=== PATIENT | female | born 1940 | race Caucasian/White ===

== ENCOUNTER 2021-02-20 09:43 | Outpatient (REF) | payer MEDICARE, BC, SELFPAY ==
[2021-02-20 13:01] LABS: HCT 35.7 % (36.0-46.0); HGB 11.4 g/dL (11.2-15.7); MCH 28.2 pg (27.0-33.0); MCHC 31.9 % (32.0-36.0); MCV 88.4 fL (80-95); MPV 10.6 fL (8.0-11.0); Platelet Count 292 10^3/uL (130-400); RBC 4.04 10^6/uL (3.93-5.22); RDW 12.7 % (11.7-14.6); RDW-SD 41.4 fL; WBC 4.77 10^3/uL (4.4-10.8)
[2021-02-20 15:29] LABS: Calcium 8.9 mg/dL (8.5-10.1); Glucose 95 mg/dL (74-106)
[2021-02-20 15:30] LABS: BUN 15 mg/dL (7-18); CREATININE 0.7 mg/dL (0.55-1.02); Calculated LDL 107 mg/dL (<100); Cholesterol 197 mg/dL (<200); HDL Cholesterol 80 mg/dL (40-60); Total Protein 6.9 g/dL (6.4-8.2); Triglyceride 53 mg/dL (<150)
[2021-02-20 15:31] LABS: ALT 20 U/L (14-59); AST 14 U/L (15-37); Albumin 3.7 g/dL (3.4-5.0); Alkaline Phosphatase 110 U/L (46-116); Anion Gap 9.1 mmol/L (3-11); Bilirubin, Total 0.4 mg/dL (0.2-1.0); CO2 26.9 mmol/L (21.0-32.0); Chloride 107 mmol/L (98-107); Potassium 4.3 mmol/L (3.5-5.1); Sodium 143 mmol/L (136-145)
== END 2021-02-20 09:44 | disposition home or self-care (01) ==
LOC: NCHCN 09:43
PROVIDERS: Visit Provider Family Medicine
DX: E03.9 Hypothyroidism, unspecified (principal); E66.9 Obesity, unspecified; L57.8 Other skin changes due to chronic exposure to nonionizing radiation
CPT/HCPCS: 80053; 80061; 85027

== ENCOUNTER → 2021-10-25 01:01 | Outpatient (CLI) | payer MEDICARE, BC, SELFPAY ==
--- NOTE | 2021-10-25 | DI.RAD_ITS ---
Exam(s) XR KNEE LT 3V AP,LAT,BRITT EXAM: XR KNEE LT 3V AP,LAT,BRITT CLINICAL HISTORY: BILAT KNEE PAIN, M25.569. TECHNIQUE: 2D digital imaging was performed of the left knee. Images were obtained. Merchant,AP, lateral and PA tunnel views were obtained. COMPARISON: CR XR KNEE RT 3V AP,LAT,BRITT from 10/25/2021 FINDINGS: BONES: No acute fracture is present. No bony destructive lesion is seen. JOINTS: Moderate narrowing and periarticular spurring of the lateral femoral tibial joint and patello femoral joint. Small joint effusion. SOFT TISSUE: Normal. IMPRESSION: Moderate degenerative changes. DATA REPOSITORY: RADIATION DOSE DELIVERED:
--- NOTE | 2021-10-25 | DI.RAD_ITS ---
Exam(s) XR KNEE RT 3V AP,LAT,BRITT EXAM: XR KNEE RT 3V AP,LAT,BRITT CLINICAL HISTORY: BILAT KNEE PAIN, M25.569. TECHNIQUE: 2D digital imaging was performed of the right knee. Three views obtained. AP, lateral an d PA tunnel views were obtained. COMPARISON: No exams were available for comparison FINDINGS: BONES: No acute fracture is present. No bony destructive lesion is seen. JOINTS: There is narrowing of the lateral femoral tibial and patellofemoral joints. Periarticular sp urring is seen involving all 3 joint compartments. No joint effusion is seen. SOFT TISSUE: Normal. IMPRESSION: Moderate degenerative changes of the knee. DATA REPOSITORY: RADIATION DOSE DELIVERED:
--- OUTSIDE RECORDS SUMMARY | 2021-10-25 01:02 | XMS_ITS | Encounter Summary ---
:1940 Author Organization [facility] [place] [address] Care Team Providers Name Role Phone Karen Holder MD Primary Care Provider Reason for Visit Reason Comments Establish Care Consultation (Routine) - Authorized Specialty Diagnoses / Procedures Referred By Contact Refer red To Contact Hematology and Diagnoses Carcinoma of left female breast, unspecified estrogen receptor status, unspecified site of breast Karen Holder MD [facility] Hem Onc 3k Oncology [address] [place] [address] [place] [address] Phone: Fax: Referral ID Status Reason Start Date Expiration Visits Visits Date Requested Authorized [id number] Authorized Consult, 06/11/2021 06/11/2022 6 6 Test & Treat Encounter Details Date Type Department Care Team Description 08/15/2021 Office Visit General Surgery at [facility] for follow- up surveillance of breast cancer; [facility] Savannah Leon APRN Malignant neoplasm of left breast in fem olena, estrogen receptor positive, unspecified site of breast; [facility] Cyndi ast cancer screening by mammogram [address] [place] [facility] [phone] [place], [place] [id number] Social History Tobacco Use Types Packs/Day Years Used Date Former Smoker Quit: 1964 Smokeless Tobacco: Never Used Alcohol Habits Answer Date Recorded How often do you have a drink containing alcohol? Not asked How many drinks containing alcohol do you have on a typical Not asked day when you are drinking? How often do you have six or more drinks on one occasion? No t asked Comment: rarely 01/09/2021 Sex Assigned at Date Recorded Not on file documented as of this encounter Progress Notes Alvina, Savannah Leon, RENAL DIALYSIS TECHNICIAN - 08/15/2021 9:00 AM EDT Images from the original note were not included. Patient ID: Savannah Poe is a 80 y.o. female who is seen at the request of Karen Holder MD for transfer of care for a history of left breast cancer. I have reviewed her medical records in detail. 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 She is status post bilateral partial mastectomies and left sentinel node excision at [facility] in December 1996. At today's visit, Savannah has no breast concerns and denies any new lumps or bumps in her breasts or axilla. She performs occasional self-breast exams. No nipple discharge or pain in either breast. She denies any headaches or significant weight changes. No new chest pain or difficulty breathing. No new bony pain or tenderness. She denies significant changes to her health in the past year. Breast cancer history: Savannah underwent bilateral partial mastectomies and left ALND at [facility] in 12/1996. Pathology revealed invasive ductal carcinoma, ER/MO positive, 1.5 cm. One of [address] were positive. She was treated with adjuvant chemotherapy (most likely CMF), radiation (completed 10/24/1997) and endocrine therapy with tamoxifen x 5 years followed by letrozole for 2 years. Genetic testing was done in 03/2013 and was negative for BRCA 1/2 mutations. She developed lymphedema in the left arm in 2013. Her symptoms are stable at this time. No need for compression garments or regular MLD. BREAST CANCER NOTES Local Surgery Right partial mastectomy Axillary Management ALND (1 of [address] involved) Date of Last Surgical Procedure 12/1996 at [facility] Histology IDC left; LCIS right Size of Primary Malignancy 15 mm ER Positive MO Positive HER-2 Negative Chemotherapy Adjuvant CMF Radiation Therapy Completed 10/24/1997 Adjuvant Endocrine Therapy Tamoxifen x 5 yrs => letrozole x 2 yrs Genetic Testing 03/2013 - BRCA 1/2 negative Surveillance Annual mammogram and CBE Breast Cancer Risk Factors: History Age at delivery of first child 33 yo Breast fed Yes Menarche age 13 yo LMP / Menopause After chemo Hormonal contraceptive use Yes Hormone replacement therapy No Family history of breast cancer Paternal half sister Family history of ovarian cancer Mother Known genetic mutation 03/2013 - BRCA 1/2 negative Ashkenazi Gnosticism heritage No Family History Problem (# of Occurrences) Relation (Name,Age of Onset) Breast Cancer (1) Sister (half) Leukemia (1) Maternal Aunt Melanoma (1) Maternal Aunt Ovarian Cancer (1) Mother Social Hx: Savannah relocated to the area from [place] with the pandemic. 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 She has a distant history of smoking in college; ETOH - 1-2/yr. Past Medical Hx: thyroid cancer, osteoporosis, SCC, aortic regurgitation Physical Exam: General appearance: Alert, well-developed, well-nourished; in no acute distress. Skin: Warm and dry. Head: Normocephalic, atraumatic. Neck: Soft and supple without cervical adenopathy. Cardiovascular: Normal rate, regular rhythm and normal heart sounds. No murmur heard. Pulmonary: Effort normal and breath sounds normal. No signs of respiratory distress, cough, or wheezing. Breasts: The breasts are examined in the upright and supine position. The left breast has a well-healed scar in the lateral breast and axilla. The scar is soft and nontender, without mass. No venous prominence, skin thickening, or nipple discharge. The right breast is normal appearing. No suspicious masses, tenderness, dimpling, erythema, or other skin changes in either breast. No palpable axillary lymph nodes bilaterally. The nipples are everted. I feel no obvious discrete or dominant masses in either breast. Musculoskeletal: Arms with full ROM without any evidence of lymphedema. Fully weight-bearing. Neurological: Alert and oriented x 4. Mood is euthymic and appropriate to the situation. Results: Imaging to be performed (bilateral screening mammogram) at [facility] today. I will notify her ofresults via myD-H when available. Assessment: Clinical breast exam without notable masses, skin changes, dimpling, or nipple discharge. Plan: 1. Encounter for follow-up surveillance of breast cancer 2. Malignant neoplasm of left breast in female, estrogen receptor positive, unspecified site of breast 3. Breast cancer screening by mammogram - Mammo Screening Cad and Morgan Bilateral; today I have discussed my assessment and recommendations with Savannah to include occasional self-breast exams. Provided today's mammogram is negative, we will go to PRN imaging and breast exams. Savannah knows she may contact me if she develops any new breast changes or concerns in the future. She agrees to thisplan. Routine recommendations discussed with the patient including importance of regular moderate intensity exercise, nutrition, decreasing cardiovascular risk, and optimizing weight. Nonpharmacologic measures to help decrease your risk of developing breast cancer include the following: ?? Get at least 30 minutes of moderate intensity physical activity above normal activity on most days of the week to reduce the risk of chronic disease in adulthood. Walking is a good choice. You also may want to do other activities, such as running, swimming, cycling, playing tennis, or other team sports. ?? Do strength training exercises at least twice a week to maintain muscle and bone health. ?? Drink alcohol in moderation, if at all. That means no more than 1 drink a day for women or 2 per day for men. ?? Make healthy eating choices: fruits and vegetables, lean protein, and healthy fats. Minimize processed foods, simple carbohydrates, sugars, and artificial sweeteners. ?? Maintain or achieve a healthy weight. Normal BMI < 25 for individuals under 65 years old; 22-30 for > 65 years old. ?? Manage stress levels. ?? Be cautious about exposure risk, both what you put in and on your body (ie: artificial fragrances, artificial dyes, as well as certain ingredients in makeup, hair and body care, antiperspirant, sunscreen, insect repellant, laundry detergent, fabric softener, dryer sheets, etc.). Resources to help you make informed choices for personal care products are available at EWG (Environmental Working Group) at https://www.ewg.org and free apps for your cell phone from [employer] ([employer]) and [employer] ([employer]). All questions were answered to the patient's satisfaction and they state understanding and agreementwith today's treatment plan. They are encouraged to follow up if they develop new or concerning symptoms. Total time spent on the date of the encounter: 50 minutes (Includes time spent reviewing prior notes and tests, obtaining a history, performing an exam, counseling and education, coordination of care, ordering medications/tests, placing referrals, interpreting results, and documenting in the chart). Savannah Tinsley APRN Surgical Oncology P [phone] F [phone] [facility] documented in this encounter Plan of Treatment Not on filedocumented as of this encounter Results Mammo Screening Cad and Morgan Bilateral (08/15/2021 12:15 PM EDT) Anatomical Region Laterality Modality Breast Bilateral Mammography Specimen (Source) Anatomical Location Collection Method / Collectio n Time Received Time / Laterality Volume Narrative 08/16/2021 11:52 AM EDT EXAMINATION: MAMMO SCREENING CAD AND MORGAN BILATERAL REASON FOR EXAM: Screening. History of l eft breast cancer. TECHNIQUE: CC and MLO views were obtaine d of both breasts. Computer aided detection was used. 3D tomosynthesis sulema ges were obtained in addition to 2D images. COMPARISON: The study is compared with p lyndhurstr images. FINDINGS: Breast density: The breasts are heteroge neously dense, which may obscure small masses There are no suspicious microcalcificati ons, masses, or areas of distortion. There are post treatment changes in the left breast. CONCLUSION: No mammographic evidence of malignancy. RECOMMENDATION: Routine annual screening . BI-RADS CATEGORY 2: BENIGN FINDINGS * ??Regular screening mammograms startin g between age 40 and 50 reduces the risk of from breast cancer. * ??All screening tests have both risks and benefits. These risks and benefits should be assessed for each individual p atient through discussion with their provider to determine their preferred east cancer screening schedule. * ??Women should report any breast contreras es to a health care provider right away. * ??Some women, because of their family history, a genetic tendency, or other factors, should be screened with annual breast MRI as well as with mammograms. (The number of women who fall into this category is very small). Patients and health care providers should discuss the history of each patient to decide if earlier screening and/or breast MRI are appropriate. * ??Screening should continue as long as a woman is in good health and is expected to live 10 years or longer. * ??Screening mammography may not detect 10-15% of breast cancers. Thank you for letting us participate in the care of this patient. ??If you are a health care provider and have any questi ons regarding this report, please contact the number below. ??For patients who have questions please contact the health ocular care aide that requested your imaging first. ? Savannah Tinsley RENAL DIALYSIS TECHNICIAN IMG MAMMO ORDERABLES documented in this encounter Visit Diagnoses Diagnosis Encounter for follow-up surveillance of breast cancer Unspecified follow-up examination Malignant neoplasm of left breast in fem olena, estrogen receptor positive, unspecified site of breast Breast cancer screening by mammogram Malignant neoplasm of left breast in fem olena, estrogen receptor positive, unspecified site of breast Breast cancer screening by mammogram documented in this encounter Care Teams Service Officer Relationship Specialty Start Date End Date Karen Holder MD PCP - General Family Medicine 11/26/20 [address] [place] [address] documented as of this encounter
--- OUTSIDE RECORDS SUMMARY | 2021-10-25 01:02 | XMS_ITS | Encounter Summary ---
:1940 Author Organization [place] [address] Care Team Providers Name Role Phone Karen Holder MD Primary Care Provider Encounter Details Date Type Department Care Team Description 07/18/2021 Telephone Endocrinology at [facility] Misti Mendez MD [facility] [place] [address] ENDOCRINOLOGY DEPT [phone] [place] [address] (Wo rk) Social History Tobacco Use Types Packs/Day Years [...] on file documented as of this encounter Miscellaneous Notes Telephone Encounter - Misti Fernandes MD - 07/18/2021 1:53 PM EDT I spoke with Savannah Poe regarding her labs: Latest Reference Range & Units 06/26/21 14:26 Creatinine 0.70 - 1.20 mg/dL 0.70 Estimated GFR >=60 mL/min/1.73 m?? 82 [1] Thyroglobulin <=54.9 ng/mL 0.2 Thyroglob Ab 0.0 - 40.0 IU/mL <20.0 25-OH Vit D Total 21 - 100 ng/mL 25 25-OH Vit D Interp Insufficient TSH 0.27 - 4.20 mcIU/mL 0.52 [2] Tg remains low. TSH low normal. We discussed the option of continuing her current dose of LT4 175 mcg daily vs reducing her dose to 150 mcg daily to relax TSH suppression, as this may also benefit her bone health. She has elected to continue her current dose as she fears her fatigue may worsen. Recheck TSH in 1 year. Vit D low - advised to start 2000 units daily. Recheck DEXA in 1 year. documented in this encounter Plan of Treatment Scheduled Orders Name Type Priority Associated Diagnoses Order S chedule DXA Central Spine, Imaging Routine Osteoporosis, unspecif ied Expected: 07/18/2022 Hip, and/or Whole osteoporosis type, (Hardik roximate), Body (Generic) unspecified pathological E xpires: 01/17/2023 fracture presence TSH [facility] Routine Postoperative Expected: 10/2022 hypothyroidism (Approximate) , Expires: 2022 documented as of this encounter Visit Diagnoses Diagnosis Osteoporosis, unspecified osteoporosis t ype, unspecified pathological fracture presence Postoperative hypothyroidism Postsurgical hypothyroidism documented in this encounter Care Teams Cell Repairer Relationship Specialty Start Date End Date Karen Holder MD PCP - General Family Medicine 11/26/20 [address] [place] [address] documented as of this encounter
--- OUTSIDE RECORDS SUMMARY | 2021-10-25 01:02 | XMS_ITS | Encounter Summary ---
:1940 Author Organization [facility] [place] [address] Care Team Providers Name Role Phone Karen Holder MD Primary Care Provider Encounter Details Date Type Department Care Team Description 08/15/2021 Hospital Encounter Mammography/DXA at [facility] neoplasm of left breast in female, estrogen receptor positive, unspecified site of breast; [facility] Savannah Leon APRN Breast cancer screening by mammogram [facility] [address] [place], [place] GENER[facility] [address] [place], [place] [phone] [facility] Social History Tobacco Use Types Packs/Day Years [...] on file documented as of this encounter Medications at Time of Discharge Medication Sig Dispensed Refills Start Date End Date Synthroid 175 mcg Tablet TAKE 1 TABLET BY MOUTH 0 09/14/2020 EVERY DAY acetaminophen-codeine Take 1 tablet by mouth 4 tablet 0 (Tylenol-Codeine #3) every 8 hours as 300-30 mg Tablet needed for Pain. No driving, no alcohol documented as of this encounter Plan of Treatment Not on filedocumented as of this encounter Procedures Procedure Name Priority Date/Time Associated Diagnosis Comme nts MAMMO SCREENING CAD Routine 08/15/2021 12:15 PM Malignant neop lasm Results for this AND MORGAN BILATERAL EDT of left breast in proc betty are in female, estrogen the results receptor positive, section. unspecified site of breast Breast cancer screening by mammogram documented in this encounter Results Mammo Screening Cad and [...] COMPARISON: The study is compared with p rior images. FINDINGS: Breast density: The breasts are [...] with their provider to determine their preferred [facility] cancer screening schedule. * ??Women should report [...] who have questions please contact the health outdoor emergency care technician that requested your imaging first. ? Savannah Tinsley ABALONE DIVER IMG MAMMO ORDERABLES documented in this encounter Visit Diagnoses Diagnosis Malignant neoplasm of left breast in fem olen[place], estrogen receptor positive, unspecified site of breast Breast cancer screening by mammogram documented in this encounter Care Teams Elevator Repairer Relationship Specialty Start Date End Date Karen Holder MD PCP - General Family Medicine 11/26/20 [address] [place] [address] documented as of this encounter
--- OUTSIDE RECORDS SUMMARY | 2021-10-25 01:02 | XMS_ITS | Clinical Summary ---
:1940 Author Organization [place] [address] Care Team Providers Name Role Phone aKren Holder MD Primary Care Provider Allergies No known active allergies Medications Medication Sig Dispensed Refills Start Date End Date Status Synthroid 175 mcg TAKE 1 TABLET BY 0 09/14/2020 Active Tablet MOUTH EVERY DAY acetaminophen-codeine Take 1 tablet by 4 tablet 0 12/06/2020 Active (Tylenol-Codeine #3) mouth every 8 300-30 mg Tablet hours as needed for Pain. No driving, no alcohol Additional Information Patient not taking. Reported on 06/26/2021 Active Problems Problem Noted Date Arthritis of carpometacarpal (CMC) joint of left thumb 01/09/2021 Mild aortic regurgitation 11/18/2017 History of squamous cell carcinoma of skin 07/24/2009 Malignant neoplasm of left breast in female, estrogen receptor positive 09/16/2005 Overview: Formatting of this note might be differe nt from the original. ICD10 replacement of problem list Hypothyroidism Thyroid cancer Encounters Date Type Specialty Care Team Description 08/15/2021 Hospital Encounter Radiology Alvina, Maligndesire nt neoplasm of left breast in female, estrogen receptor positive, unspecified site of breast; Savannah Leon APRN Breast cancer screening by mammogram 08/15/2021 Office Visit General Surgery Alvina, Encounter for follow-up surveillance of breast cancer; Savannah Leon APRN Malignant neop lasm of left breast in female, estrogen receptor positive, unspecified site of breast; Breast cancer s creening by mammogram from Last 3 Months Family History Medical History Relation Comments Melanoma Maternal Aunt 1 Leukemia Maternal Aunt 2 Ovarian Cancer Mother Breast Cancer Sister Relation Status Comments Maternal Aunt 1 Maternal Aunt 2 Mother Sister Social History Tobacco Use Types Packs/Day Years [...] Assigned at Date Recorded Not on file Last Filed Vital Signs Vital Sign Reading Time Taken Comments Blood Pressure 129/61 06/26/2021 1:19 PM EDT Pulse 76 06/26/2021 1:19 PM EDT Temperature 36.9 ??C (98.4 ??F) 06/26/2021 1:19 PM EDT Respiratory Rate 18 12/06/2020 7:41 PM EDT Oxygen Saturation 99% 06/26/2021 1:19 PM EDT Inhaled Oxygen Concentration - - Weight 94.3 kg (207 lb 12.8 oz) 06/26/2021 1:19 PM EDT Height 170.2 cm (5' 7) 06/26/2021 1:19 PM EDT Body Mass Index 32.55 06/26/2021 1:19 PM EDT Plan of Treatment Health Maintenance Due Date Last Done Comments Covid-19 Vaccine (#1) 1945 Tdap adult 09/12/1959 Tetanus vaccine 09/12/1959 Zoster vaccine (1 of 2) 1990 Advance Directive 09/12/1995 Bone Density Scan 2005 Pneumoccocal Vaccine: 65+ (1 - PCV) 2005 Influenza (Flu) vaccine (1 of 1 - Influenza standard 12/12/2021 series) Procedures Procedure Name Priority Date/Time Associated Diagnosis Comme nts MAMMO SCREENING CAD Routine 08/15/2021 12:15 PM Malignant neop lasm Results for this AND MORGAN BILATERAL EDT of left breast in proc edure are in female, estrogen the results receptor positive, section. unspecified site of breast Breast cancer screening by mammogram from Last 3 Months Results Mammo Screening Cad and Morgan Bilateral [...] with their provider to determine their preferred [facility] cancer screening schedule. * ??Women should report [...] who have questions please contact the health interior plant caretaker that requested your imaging first. ? Savannah Leon [place] DOT COMPLIANCE SPECIALIST IMG MAMMO ORDERABLES from Last 3 Months Insurance Payer Benefit Plan / Subscriber ID Effective Phone Address T ype Group Dates [employer] [id number] 2021-Prese [address] [place] [address] [place] [address] MEDICARE MEDICARE PART [id number] 2020-Prese [phone] [place] [address] Care Teams Network Architect Manager Relationship Specialty Start Date End Date Karen Holder MD PCP - General Family Medicine 11/26/20 [address] [place], [place] [id number]
--- OUTSIDE RECORDS SUMMARY | 2021-10-25 01:03 | XMS_ITS | Encounter Summary ---
:1940 Author Organization [facility] [place] [address] Care Team Providers Name Role Phone Karen Holder MD Primary Care Provider Reason for Referral Consultation (Routine) - Authorized Specialty Diagnoses / Procedures Referred By Contact Refer red To Contact Hematology and Diagnoses Carcinoma of left female breast, unspecified estrogen receptor status, unspecified site of breast Karen Holder MD [facility] Hem Onc 3k Oncology [address] [place] [address] [place] [address] Phone: Fax: Referral ID Status Reason Start Date Expiration Visits Visits Date Requested Authorized [id number] Authorized Consult, 06/11/2021 06/11/2022 6 6 Test & Treat Encounter Details Date Type Department Care Team Description 06/11/2021 Transcribe Orders Administration Karen Holder, Carcinoma of left [facility] female breast, Drive [address] unspecified estrogen [place], [place] receptor status , [phone] unspecified site of [phone] breast (Work) Social History Tobacco Use Types Packs/Day Years Used Date Never Smoker Alcohol Habits Answer Date Recorded How often [...] on file documented as of this encounter Plan of Treatment Scheduled Referrals Name Type Priority Associated Order Schedule Diagnoses Referral to Outpatient Referral Routine Carcinoma of left Ord ered: Comprehensive Breast female breast, 06/11 Program unspecified estrogen receptor status, unspecified site of breast documented as of this encounter Visit Diagnoses Diagnosis Carcinoma of left female breast, unspeci fied estrogen receptor status, unspecified site of breast documented in this encounter Care Teams Manager Sharepoint Relationship Specialty Start Date End Date Karen Holder MD PCP - General Family Medicine 11/26/20 [address] [place] [address] documented as of this encounter
--- OUTSIDE RECORDS SUMMARY | 2021-10-25 01:03 | XMS_ITS | Encounter Summary ---
:1940 Author Organization [facility] [place] [address] Care Team Providers Name Role Phone Unavailable Primary Care Provider Unavailable Encounter Details Date Type Department Care Team Description 05/31/2013 Ancillary Procedure Radiology Library at Karen Holder MD [facility] [address] [place] [address] [facility] [phone] [place] [address] (Work) [phone] Social History Tobacco Use Types Packs/Day Years Used Date Never Assessed Sex Assigned at Date Recorded Not on file documented as of this encounter Plan of Treatment Not on filedocumented as of this encounter Procedures Procedure Name Priority Date/Time Associated Diagnosis Comme nts FILM LIBRARY Routine 05/31/2013 12:00 AM Results for this STORAGE ONLY MAMMO EST procedure are in the results section. documented in this encounter Results Film Library- Storage Only Mammo (05/31/2013 12:00 AM EST) Specimen (Source) Anatomical Location Collection Method / Collectio n Time Received Time / Laterality Volume Narrative SHELLY - 06/25/2021 4:25 PM EDT This exam is auto-finalizing. It's purpo se is for storage only. Karen Holder MD IMG FILM LIBRARY ORDERABLES Performing Organization Address City/State/ZIP Code Phon e Number [place], [place] documented in this encounter Visit Diagnoses Not on filedocumented in this encounter
--- OUTSIDE RECORDS SUMMARY | 2021-10-25 01:03 | XMS_ITS | Encounter Summary ---
:1940 [place] [address] Care Team Providers Name Role Phone Karen Holder MD Primary Care Provider Reason for Visit Reason Comments Oral Swelling left jaw Jaw Pain left Encounter Details Date Type Department Care Team Description 12/06/2020 Emergency Emergency Department [facility] [place] [address] Social History Tobacco Use Types Packs/Day Years Used Date Never Assessed Sex Assigned at Date Recorded Not on file documented as of this encounter Last Filed Vital Signs Vital Sign Reading Time Taken Comments Blood Pressure 128/70 12/06/2020 7:41 PM EDT Pulse 78 12/06/2020 7:41 PM EDT Temperature 36.4 ??C (97.6 ??F) 12/06/2020 3:34 PM EDT Respiratory Rate 18 12/06/2020 7:41 PM EDT Oxygen Saturation 98% 12/06/2020 7:41 PM EDT Inhaled Oxygen Concentration - - Weight 99.8 kg (220 lb) 12/06/2020 3:34 PM EDT Height - - Body Mass Index - - documented in this encounter Discharge Instructions Discharge InstructionsTristin Edwards APRN - 12/06/2020 7:35 PM EDT Images from the original note were not included. You were seen today in the emergency department and evaluated for dental pain and facial swelling. You are felt that you have a dental infection and are started on antibiotics and medications to help with your pain. You were able to tolerate fluids in the emergency department. We recommend that you push fluids and while it is still painful to chew follow a full liquid diet, things such as boost or Ensure or smoothies can be helpful. Sometimes lukewarm beverages can cause less pain. Instructions and plan: See the instructions below for general care guidelines regarding your infected tooth. See your primary care provider as needed for reevaluation and follow up. Return if you have new or worsening symptoms or any of the symptoms we discussed including but not limited to: New or worsening symptoms of infection including increased pain, swelling, warmth or redness. Red streaks bleeding from the area, pus draining from the area. Difficulty breathing or swallowing. Fever, chills. Abscessed Tooth: Care Instructions Your Care Instructions An abscessed tooth is a tooth that has a pocket of pus in the tissues around it. Pus forms when the body tries to fight an infection caused by bacteria. If the pus cannot drain, it forms an abscess. Anabscessed tooth can cause red, swollen gums and throbbing pain, especially when you chew. You may have a bad taste in your mouth and a fever, and your jaw may swell. Damage to the tooth, untreated tooth decay, or gum disease can cause an abscessed tooth. An abscessed tooth needs to be treated by a dental professional right away. If it is not treated, the infection could spread to other parts of your body. Your dentist will give you antibiotics to stop the infection. He or she may make a hole in the tooth or cut open (marine) the abscess inside your mouth so that the infection can drain, which should relieve your pain. You may need to have a root canaltreatment, which tries to save your tooth by taking out the infected pulp and replacing it with a healing medicine and/or a filling. If these treatments do not work, your tooth may have to be removed. Follow-up care is a armstrong part of your treatment and safety. Be sure to make and go to all appointments, and call your doctor if you are having problems. It's also a good idea to know your test results and keep a list of the medicines you take. How can you care for yourself at home? You have been prescribed antibiotics, take them as directed. Do not stop taking them just because you feel better. You need to take the full course of antibiotics. To reduce pain and facial swelling, put an ice or cold pack on the outside of your cheek for 10 to 20 minutes at a time. Put a thin cloth between the ice and your skin. You can take an [id number] nonsteroidal anti-inflammatory such as ibuprofen (Motrin) 600 mg bymouth every 8 hours as needed or naproxen (Aleve) 220 mg by mouth every 12 hours as needed. Be sure to take the ibuprofen or naproxen with food or a small meal. You can also take Tylenol 1000 mg by mouth every 8 hours as needed (do not take more than 3000 mg in a 24-hour period). As we discussed you can substitute one of the extra strength Tylenol pills for one of the Tylenol with codeine pills. Avoid very hot, cold, or sweet foods and drinks if they increase your pain. Rinse your mouth with warm salt water every 2 hours to help relieve pain and swelling. Mix 1 teaspoon of salt in 8 ounces of water, it should taste like the ocean. Gargle this for 30-45 seconds and then spit. Do not smoke or use spit tobacco. Tobacco use can make gum problems worse, decreases your ability tofight infection in your gums, and delays healing. If you need help quitting, talk to your doctor about stop-smoking programs and medicines. These can increase your chances of quitting for good. Make an appointment to see a dentist as soon as possible. To prevent tooth abscess [place] and floss every day, and have regular dental checkups. Eat a healthy diet, and avoid sugary foods and drinks. Do not smoke, use e-cigarettes with nicotine, or use spit tobacco. Tobacco and nicotine slow your ability to heal. Tobacco also increases your risk for gum disease and cancer of the mouth and throat. If you need help quitting, talk to your doctor about stop-smoking programs and medicines. These can increase your chances of quitting for good. When should you call for help? Call 911 anytime you think you may need emergency care. For example, call if: You have trouble breathing. Call your doctor now or seek immediate medical care if: You have new or worse symptoms of infection, such as: Increased pain, swelling, warmth, or redness. Red streaks leading from the area. Pus draining from the area. A fever. Watch closely for changes in your health, and be sure to contact your doctor if: You do not get better as expected. Where can you learn more? Visit our health information library at [email or web address]. You can also view health information on [employer], your personal patient account. Log in or sign up today. Enter L466 in the search box to learn more about Abscessed Tooth: Care Instructions. Current as of: August 22, 2016 Content Version: 11.7 ?? 1147-3115 [employer]. Care instructions adapted under license by [facility]. If you have questions about a medical condition or this instruction, always ask your healthcare professional. [employer] disclaims any warranty or liability for your use of this information. documented in this encounter Medications at Time of Discharge Medication Sig Dispensed Refills Start Date End Date Synthroid 175 mcg Tablet TAKE 1 TABLET BY 0 09/14 MOUTH EVERY DAY acetaminophen-codeine Take 1 tablet by 4 tablet 0 12/07/19 21 (Tylenol-Codeine #3) mouth every 8 hours 300-30 mg Tablet as needed for Pain. No driving, no alcohol penicillin v potassium Take 1 tablet by 40 tablet 0 2 021 12/16/2020 (VEETID) 500 mg Tablet mouth 4 times daily for 10 days. documented as of this encounter ED Notes Tristin Edwards APRN - 12/06/2020 7:42 PM EDT Images from the original note were not included. Patient Name: Savannah Poe Patient Age: 80 y.o. Patient : 1940 Encounter Date: 12/06/2020 SUBJECTIVE CC: Oral Swelling (left jaw) and Jaw Pain (left) HPI: Savannah Poe is a 80 y.o. female who presents for evaluation of dental pain, facial swelling. Past medical history of thyroid cancer status post resection now on thyroid replacement therapy. Sheis otherwise healthy without any other significant past medical history. She reports for the past 2 days she has had dental pain in her left lower jaw as well as associated swelling. She did see your dentist a couple months ago and they did identify an issue with that tooth but plan to hold off for the time being, she was able to get an appointment with her clerical administrative assistant here but not to this upcoming Thursday. She has found it painful to eat and drink particularly because of the hot/cold temperature of the beverage. She has found chewing painful. She is here with her daughter and her daughter is concerned that she is not well-hydrated. Patient denies any fever or chills, she took 600 of ibuprofen about 2 hours prior to arrival, she has not taken any Tylenol today. She has not had any difficulty managing her secretions. The history is provided by the patient and EMR. ROS: ROS as above with pertinent positives and negatives, otherwise 10 systems are reviewed and negative. PMH, PSH, SH, medications and allergies reviewed & updated in chart as appropriate. OBJECTIVE VS: BP 128/70 Pulse 78 Temp 36.4 ??C (97.6 ??F) (Temporal) Resp 18 Wt 99.8 kg (220 lb) SpO2 98% PHYSICAL EXAM: Physical Exam Constitutional: General: She is not in acute distress. Appearance: Normal appearance. HENT: Head: Jaw: Tenderness and swelling present. No trismus. Comments: Mild swelling of the left lower jaw. Mouth/Throat: Mouth: Mucous membranes are moist. Dentition: Dental tenderness present. Pharynx: Oropharynx is clear. Comments: Left lower most posterior molar with tenderness, no palpable abscess or fluctuance, no drainage. Neck: Comments: Left submandibular swelling, floor of mouth is soft, phonation is normal, trachea is midline. No clear adenopathy. Cardiovascular: Rate and Rhythm: Normal rate and regular rhythm. Pulmonary: Effort: Pulmonary effort is normal. No respiratory distress. Musculoskeletal: General: Normal range of motion. Skin: General: Skin is warm and dry. Capillary Refill: Capillary refill takes less than 2 seconds. Neurological: General: No focal deficit present. Mental Status: She is alert. Psychiatric: Mood and Affect: Mood normal. Behavior: Behavior normal. ED COURSE ED Course as of Dec 06 1950 Janna Dec 06, [id number] Temp: 36.4 ??C (97.6 ??F) 184 Patient given some apple juice with a straw, tolerating it well without difficulty. History, examination Vitals, nursing notes reviewed DIAGNOSTICS: Imaging No orders to display Labs No results found for this or any previous visit (from the past 24 hour(s)). Reviewed and interpreted independently MEDICATIONS: Medications acetaminophen (Tylenol) tablet 500 mg (500 mg Oral Given 12/06/201854) acetaminophen-codeine (Tylenol #3) 300-30 mg per tablet 1 tablet (1 tablet Oral Given 12/06/201854) penicillin v potassium (Veetid) tablet 500 mg (500 mg Oral Given 12/06/201854) Procedures None ASSESSMENT/PLAN MDM: 80 y.o. female with 2 days of dental pain and facial swelling without associated fever. Patient is afebrile, hemodynamically stable and well-appearing. Physical exam notable as above, no trismus, phonation is normal, no palpable area of abscess. No findings suggestive of Tramaine's angina, swelling is isolated and I have low suspicion for peritonsillar abscess or deep neck space infection/retropharyngeal abscess. It seems that patient's difficulty with eating and drinking is more temperature related so he tried some slightly warmed apple juice which patient was able to tolerate without issue, she also was able to tolerate medications here in the ED. We discussed antibiotics, analgesia and strict return precautions. ASSESSMENT: 1. Dental infection PLAN: Follow up with Karen Holder MD in 1 week as needed Dental provider evaluation as soon as possible Discharge instructions per AVS Return precautions were discussed with the patient; patient expressed understanding and is in agreement with plan Discharge Medication List as of 12/06/2020 7:37 PM START taking these medications Details penicillin v potassium (VEETID) 500 mg Tablet Take 1 tablet by mouth 4 times daily for 10 days., Disp-40 tablet, R-0, Normal acetaminophen-codeine (Tylenol-Codeine #3) 300-30 mg Tablet Take 1 tablet by mouth every 8 hours as needed for Pain. No driving, no alcoholIndication: Acute painDisp-4 tablet, R-0, Normal Discharge home This note was dictated, at least, in part with [employer] D[employer] software. PPE worn during this encounter: N95 mask Tristin Edwards APRN 12/06/201950 documented in this encounter Miscellaneous Notes ED Triage - Renuka Isabel RN - 12/06/2020 3:31 PM EDT I think I have a tooth infection. Swelling in my lymph nodes under my left jaw. Very back tooth, feels like it is coming up, not where it normally sits. Radiating pain the whole side of my face. Patient's left side of jaw is swollen. Having a hard time eating and drinking documented in this encounter Plan of Treatment Not on filedocumented as of this encounter Visit Diagnoses Diagnosis Dental infection Acute apical periodontitis of pulpal princess gin documented in this encounter Administered Medications Inactive Administered Medications - up to 3 most recent administrations Medication Order MAR Action Action Date Dose Rate Site acetaminophen (Tylenol) tablet 500 Given 12/06/2020 6:55 PM EDT 500 mg mg 500 mg, Oral, ONCE, 1 dose, On Janna 12/06/20 at 1832, Maximum dose of acetaminophen is 4000 mg from all sources in 24 hours. When ordered for pain, acetaminophen should be given even when other ordered pain medications are indicated. , STAT acetaminophen-codeine (Tylenol #3) 300-30 Given 12/06/2020 6 :55 PM EDT 1 tablet mg per tablet 1 tablet 1 tablet, Oral, ONCE, 1 dose, On Janna 12/06/20 at 1832, STAT penicillin v potassium (Veetid) tablet 5 00 mg Given 12/06/2020 6:55 PM EDT 500 mg 500 mg, Oral, ONCE, 1 dose, On Janna 12/06/20 at 1832, STAT documented in this encounter Active and Recently Administered Medications Times are shown in EDT. Scheduled Medication Order 12/04/2020 12/05/2020 12/06/2020 acetaminophen (Tylenol) tablet 500 mg (COMPLETED) 1854 (Given - Provider: Dyan Scanlon RN) 500 mg, Oral, ONCE, 1 dose, On Janna at 1832, Maximum dose of acetaminophen is 4000 mg from all sources in 24 hours. When ordered for pain, acetaminophen should be given even when other ordered pain medications are indicated. , STAT acetaminophen-codeine (Tylenol #3) 300-30 mg per tablet 1 tablet (COMPLETED) 1854 (Given - Provider: Dyan Scanlon RN) 1 tablet, Oral, ONCE, 1 dose, On Janna 12/06/20 at 1832, STAT penicillin v potassium (Veetid) tablet 500 mg (COMPLETED) 185 (Given - Provider: Dyan Scanlon RN) 500 mg, Oral, ONCE, 1 dose, On Janna 12/06/20 at 1832, STAT documented in this encounter Care Teams Green House Manager Relationship Specialty Start Date End Date Karen Holder MD PCP - General Family Medicine 11/26/20 [address] [place] [address] documented as of this encounter
--- OUTSIDE RECORDS SUMMARY | 2021-10-25 01:03 | XMS_ITS | Encounter Summary ---
:1940 Author Organization [facility] [place] [address] Care Team Providers Name Role Phone Unavailable Primary Care Provider Unavailable Encounter Details Date Type Department Care Team Description 08/12/2016 Ancillary Procedure Radiology Library at Karen Holder MD [facility] [address] [place] [address] [facility] [phone] [place] [address] (Work) [phone] Social History Tobacco Use Types Packs/Day Years Used Date Never Assessed Sex Assigned at Date Recorded Not on file documented as of this encounter Plan of Treatment Not on filedocumented as of this encounter Procedures Procedure Name Priority Date/Time Associated Diagnosis Comme nts FILM LIBRARY Routine 08/12/2016 12:00 AM Results for this STORAGE ONLY MAMMO EDT procedure are in the results section. documented in this encounter Results Film Library- Storage Only Mammo (08/12/2016 12:00 AM EDT) Specimen (Source) Anatomical Location Collection Method / Collectio n Time Received Time / Laterality Volume Narrative ALLA BRAVO - 06/25/2021 4:26 PM EDT This exam is auto-finalizing. It's purpo se is for storage only. Karen Holder MD IMG FILM LIBRARY ORDERABLES Performing Organization Address City/State/ZIP Code Phon e Number [place], [place] documented in this encounter Visit Diagnoses Not on filedocumented in this encounter
--- OUTSIDE RECORDS SUMMARY | 2021-10-25 01:03 | XMS_ITS | Encounter Summary ---
:1940 Author Organization [facility] [place] [address] Care Team Providers Name Role Phone Unavailable Primary Care Provider Unavailable Encounter Details Date Type Department Care Team Description 02/05/2006 Ancillary Procedure Radiology Library at Karen Holder MD [facility] [address] [place] [address] [facility] [phone] [place] [address] (Work) [phone] Social History Tobacco Use Types Packs/Day Years Used Date Never Assessed Sex Assigned at Date Recorded Not on file documented as of this encounter Plan of Treatment Not on filedocumented as of this encounter Procedures Procedure Name Priority Date/Time Associated Diagnosis Comme nts FILM LIBRARY Routine 02/05/2006 12:00 AM Results for this STORAGE ONLY MAMMO EDT procedure are in the results section. documented in this encounter Results Film Library- Storage Only Mammo (02/05/2006 12:00 AM EDT) Specimen (Source) Anatomical Location Collection Method / Collectio n Time Received Time / Laterality Volume Narrative ALLA BRAVO - 06/25/2021 4:23 PM EDT This exam is auto-finalizing. It's purpo se is for storage only. Karen Holder MD IMG FILM LIBRARY ORDERABLES Performing Organization Address City/State/ZIP Code Phon e Number [place], [place] documented in this encounter Visit Diagnoses Not on filedocumented in this encounter
--- OUTSIDE RECORDS SUMMARY | 2021-10-25 01:03 | XMS_ITS | Encounter Summary ---
:1940 Author Organization [facility] [place] [address] Care Team Providers Name Role Phone Unavailable Primary Care Provider Unavailable Encounter Details Date Type Department Care Team Description 01/10/2003 Ancillary Procedure Radiology Library at Karen Holder MD [facility] [address] [place] [address] [facility] [phone] [place] [address] (Work) [phone] Social History Tobacco Use Types Packs/Day Years Used Date Never Assessed Sex Assigned at Date Recorded Not on file documented as of this encounter Plan of Treatment Not on filedocumented as of this encounter Procedures Procedure Name Priority Date/Time Associated Diagnosis Comme nts FILM LIBRARY Routine 01/10/2003 12:00 AM Results for this STORAGE ONLY MAMMO EDT procedure are in the results section. documented in this encounter Results Film Library- Storage Only Mammo (01/10/2003 12:00 AM EDT) Specimen (Source) Anatomical Location Collection Method / Collectio n Time Received Time / Laterality Volume Narrative ALLA BRAVO - 06/25/2021 4:22 PM EDT This exam is auto-finalizing. It's purpo se is for storage only. Karen Holder MD IMG FILM LIBRARY ORDERABLES Performing Organization Address City/State/ZIP Code Phon e Number [place], [place] documented in this encounter Visit Diagnoses Not on filedocumented in this encounter
--- OUTSIDE RECORDS SUMMARY | 2021-10-25 01:03 | XMS_ITS | Encounter Summary ---
:1940 Author Organization [facility] [place] [address] Care Team Providers Name Role Phone Unavailable Primary Care Provider Unavailable Encounter Details Date Type Department Care Team Description 04/29/2011 Ancillary Procedure Radiology Library at Karen Holder MD [facility] [address] [place] [address] [facility] [phone] [place] [address] (Work) [phone] Social History Tobacco Use Types Packs/Day Years Used Date Never Assessed Sex Assigned at Date Recorded Not on file documented as of this encounter Plan of Treatment Not on filedocumented as of this encounter Procedures Procedure Name Priority Date/Time Associated Diagnosis Comme nts FILM LIBRARY Routine 04/29/2011 12:00 AM Results for this STORAGE ONLY MAMMO EST procedure are in the results section. documented in this encounter Results Film Library- Storage Only Mammo (04/29/2011 12:00 AM EST) Specimen (Source) Anatomical Location Collection Method / Collectio n Time Received Time / Laterality Volume Narrative SHELLY - 06/25/2021 4:25 PM EDT This exam is auto-finalizing. It's purpo se is for storage only. Karen Holder MD IMG FILM LIBRARY ORDERABLES Performing Organization Address City/State/ZIP Code Phon e Number [place], [place] documented in this encounter Visit Diagnoses Not on filedocumented in this encounter
--- OUTSIDE RECORDS SUMMARY | 2021-10-25 01:03 | XMS_ITS | Encounter Summary ---
:1940 Author Organization [facility] Address [address] [place] [address] Care Team Providers Name Role Phone Karen Holder MD Primary Care Provider Encounter Details Date Type Department Care Team Description 06/21/2021 Orders Only General Surgery at KevinPatricia knapp [place] gnant neoplasm of [facility] [place] [employer] female breast, [facility] uns pecified estrogen Drive DR receptor status, [place] [address] GENERAL SURGERY unspecified [phone] [place], [place] [address] laterality, unspecified sit e of (Work) breast (Primary Dx) Social History Tobacco Use Types Packs/Day Years [...] as of this encounter Visit Diagnoses Diagnosis Malignant neoplasm of female breast, uns pecified estrogen receptor status, unspecified laterality, unspecified site of breast - Primary documented in this encounter Care Teams Director Of Strategic Partnerships Relationship Specialty Start Date End Date Karen Holder MD PCP - General Family Medicine 11/26/20 [address] [place] [address] documented as of this encounter
--- OUTSIDE RECORDS SUMMARY | 2021-10-25 01:03 | XMS_ITS | Encounter Summary ---
:1940 Author Organization [facility] [place] [address] Care Team Providers Name Role Phone Karen Holder MD Primary Care Provider Encounter Details Date Type Department Care Team Description 01/09/2021 Hospital Encounter [place] [facility] [place], Richard Pain in left wrist [address] [facility] [address] Ethel MD [facility] [id number] [place] [phone] [place] [address] Social History Tobacco Use Types Packs/Day Years [...] Name Priority Date/Time Associated Diagnosis Comme nts XR WRIST 3 VIEWS Routine 01/09/2021 11:22 AM Pain in left wris t Results for this LEFT EDT procedure are i n the results section. 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 Thank you for letting us participate in the care of this patient. ??If you are a health care provider and have any questi ons regarding this report, please contact the number below. ??For patients who have questions please contact the health hospice care sales consultant that requested your imaging first. ? Electronically signed by: Sepideh Leigh MD, [facility] ([phone]), at 01/09/2021 2:46 PM Narrative 01/09/2021 2:46 PM EDT EXAMINATION: XR WRIST 3 VIEWS LEFT CLINICAL HISTORY: left wrist pain, , entered by ordering service TECHNIQUE: LEFT wrist, 3 views COMPARISON: none FINDINGS: Bones No acute fracture Joints Basal joint-eccentric narrowed joint spa ce, subchondral sclerosis and osteophyte formation. Scaphoid trapezial trapezoid joint-prese rved joint space. Soft tissues No chondrocalcinosis Procedure Note Sepideh Leigh MD - 01/09/2021Formatt ing of this note might be different from the original. EXAMINATION: XR WRIST 3 VIEWS LEFT CLINICAL HISTORY: left wrist pain, , entered by ordering service TECHNIQUE: LEFT wrist, 3 views COMPARISON: none FINDINGS: Bones No acute fracture Joints Basal joint-eccentric narrowed joint spa ce, subchondral sclerosis and osteophyte formation. Scaphoid trapezial trapezoid joint-prese rved joint space. Soft tissues No chondrocalcinosis IMPRESSION Basal joint osteoarthropathy with modera te to severe eccentric narrowed joint space. Thank you for letting us participate in the care of this patient. If you are a health care provider and have any questi ons regarding this report, please contact the number below. For patients w ho have questions please contact the health hospice care sales consultant that requested your imaging first. Richard Alvarez MD IMG DX ORDERABLES documented in this encounter Visit Diagnoses Diagnosis Pain in left wrist Pain in joint, forearm documented in this encounter Care Teams Technician Biological Health Relationship Specialty Start Date End Date Karen Holder MD PCP - General Family Medicine 11/26/20 [address] [place] [address] documented as of this encounter
--- OUTSIDE RECORDS SUMMARY | 2021-10-25 01:03 | XMS_ITS | Encounter Summary ---
:1940 Author Organization [place] [address] Care Team Providers Name Role Phone Karen Holder MD Primary Care Provider Encounter Details Date Type Department Care Team Description 06/26/2021 Travel Social History Tobacco Use Types Packs/Day Years [...] filedocumented as of this encounter Visit Diagnoses Not on filedocumented in this encounter Care Teams Peeler Operator Relationship Specialty Start Date End Date Karen Holder MD PCP - General Family Medicine 11/26/20 [address] [place] [address] documented as of this encounter
--- OUTSIDE RECORDS SUMMARY | 2021-10-25 01:03 | XMS_ITS | Encounter Summary ---
:1940 Author Organization [facility] [place] [address] Care Team Providers Name Role Phone Karen Holder MD Primary Care Provider Reason for Referral Occupational Therapy (Routine) - Closed Specialty Diagnoses / Procedures Referred By Contact Refer red To Contact Occupational Therapy Diagnoses Pain in left wrist Arthritis of carpometacarpal (CMC) joint of left thumb Richard Alvarez, [facility] MD [facility] [address] [place] ORTHOPAEDIC SURGERY [address] [place] [address] Referral ID Status Reason Start Date Expiration Date Visits V isits Requested Authorized [id number] Closed Evaluate and 01/09/2021 01/09/2022 12 12 Treat Reason for Visit Reason Comments Left Wrist Pain Consultation (Routine) - Closed Specialty Diagnoses / Procedures Referred By Contact Refer red To Contact Orthopaedics Diagnoses Pain in left wrist left wrist pain past history wrist fracture 15 years ago 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 [address] [facility] [place] [place] [address] [place] [address] Phone: Fax: Referral ID Status Reason Start Date Expiration Date Visits V isits Requested Authorized [id number] Closed Consult, Test 11/15/2020 11/15/2021 12 12 [facility] PCP Updated and/or Approved Encounter Details Date Type Department Care Team Description 01/09/2021 Office Visit Orthopaedics at [facility] Richard Alvarez Pain in left wrist; [facility] MD Ethel Arthritis of carpometacarpal (CMC) joint of left thumb Drive [facility] [address] ORTHOPAEDIC [phone] [place] [address] Social History Tobacco Use Types Packs/Day Years [...] Sign Reading Time Taken Comments Blood Pressure 138/57 01/09/2021 11:31 AM EDT Pulse 95 01/09/2021 11:31 AM EDT Temperature - - Respiratory Rate - - Oxygen Saturation - - Inhaled Oxygen Concentration - - Weight 99.8 kg (220 lb) 01/09/2021 11:31 AM EDT Height 170.2 cm (5' 7) 01/09/2021 11:31 AM EDT Body Mass Index 34.46 01/09/2021 11:31 AM EDT documented in this encounter Progress Notes Richard Alvarez MD - 01/09/2021 11:30 AM EDT 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 She presents with a chief complaint of left thumb base pain, weakness, and stiffness. She is concerned becausewhen she retired she hopes to play a lot more piano and she is concerned about whether she will be able to do so. There was no recent antecedent trauma but she did have a left wrist fracture about 12 years ago which did not seem to leave her with any sequelae. She also has had left breast cancer with an axillary lymph node dissection on the left which has left her with mild lymphedema. She reports that she is has some intact functioning lymph nodes in her axilla on the left. She is a mother of one of my former patients, Michelle Akbar, who I treated surgically for a wrist fracture She reports that she does have a history of breast cancer and thyroid cancer. She uses Synthroid. Examination was a pleasant alert and oriented female in no apparent distress. She does have some mild swelling and puffiness in her left forearm but it is very modest. She has intact sensation in all of her digits of her left hand. There is no obvious deformity about her left hand. There are no dermatologic lesions. All of her digits are well-perfused. She has no digital triggering in her fingers or her thumb. She has no thenar or intrinsic atrophy. She has no significant deformity of her MCP joint and no instability. Her basal joint of her left thumb is not particularly swollen but she does have pain with crankshaft maneuver and with axial compression at the level of the thumb CMC joint. She has a negative Cagle test. She has no tenderness over her midcarpal nor her radiocarpal joint in particular. Her DRUJ is stable. Her TFCC is stable and nonpainful. Her shuck test is negative. Her Cagle test is negative. X-rays of her left hand and wrist were reviewed with her. These show very mild basal joint arthritison the left but overall her joints are fairly well- preserved. There is no significant MCP arthritis. Assessment: Mild left basal joint arthritis. She has mild chronic lymphedema. I do not believe that her mild lymphedema is playing a role in this process. I recommended referral to our hand therapist for a stretching and thenar strengthening program. I also prescribed a thumb CMC splint which will be given to her by Ortho care today. I talked about topical ointments including Voltaren gel, warm packs, and range of motion exercises. I did suggest that she may want to get more information about her lymphedema from a lymphedema therapist. I did also tell her she could be a candidate for corticosteroid injection if her symptoms escalate in which case she can contact my office to schedule this to be done under fluoroscopy. Her questions were solicited andanswered and she will contact me for follow-up on a as needed basis in the future. documented in this encounter Plan of Treatment Scheduled Referrals Name Type Priority Associated Diagnoses Order S chedule Referral to Outpatient Routine Pain in left wri st Ordered: Occupational Therapy Referral Arthritis of 021 carpometacarpal (CMC) joint of left thumb documented as of this encounter Visit Diagnoses Diagnosis Pain in left wrist Pain in joint, forearm Arthritis of carpometacarpal (CMC) joint of left thumb documented in this encounter Care Teams Tool Design Drafter Relationship Specialty Start Date End Date Karen Holder MD PCP - General Family Medicine 11/26/20 [address] [place] [address] documented as of this encounter
--- OUTSIDE RECORDS SUMMARY | 2021-10-25 01:03 | XMS_ITS ---
:1940 Author Organization [facility] Address [address] [place] [address] Phone Care Team Providers Name Role Phone Les Guerrero Attending Clinician Unavailable Irish Pizarro Attending Clinician Unavailable Misti Shaw Attending Clinician Unavailable Les Vega Attending Clinician Unavailable Les Vega Attending Clinician Les Guerrero Admitting Clinician Unavailable Irish Pizarro Admitting Clinician Unavailable Misti Shaw Admitting Clinician Unavailable Les Vega Admitting Clinician Unavailable Allergies, Adverse Reactions, Alerts Adverse reactions excluded/not available Problems Problems excluded/not available Encounters Start End Encounter Admission Attending Care Encounter ID Date/Time Date/Time Type Type Clinicians Facility 2020-09-24 2020-09-27 Outpatient [place] [id number] 17:00:00 23:37:45 Les 2020-09-03 2020-09-06 Outpatient CesarHECTOR [id number] 11:23:00 23:36:30 Les 2020-08-20 2020-08-23 Outpatient OV_MU_Mcare CesarMSK [id number] 16:45:00 23:38:43 Les 2019-12-30 2019-12-30 Outpatient Juarez MSTavia [id number] 13:40:00 13:40:00 Irish 2019-12-22 2019-12-22 Outpatient OV_MU_Mcacatherine Shaw Tavia [id number] 13:00:00 15:19:28 Misti 2019-09-06 2019-09-06 Outpatient OV_MU_Mcaid Juarez MSK [id number] 10:30:00 12:56:11 [place] 2019-04-29 2019-05-02 [place] [id number] 12:30:00 23:36:26 Les 2019-04-28 2019-04-28 [place] [id number] 12:15:00 12:15:00 Les 2019-04-21 2019-04-24 Outpatient Cesar, MSK [id number] 11:50:00 23:37:16 Les 2018-12-28 2018-12-31 Outpatient Juarez, MSK [id number] 14:49:00 23:35:25 [place] 2018-12-22 2018-12-25 Outpatient Juarez, MSK [id number] 12:55:00 23:35:03 [place] 2018-12-21 2018-12-24 Outpatient Juarez, MSK [id number] 14:37:00 23:35:07 [place] 2018-12-15 2018-12-18 Outpatient Juarez, MSK [id number] 12:47:00 23:35:25 [place] 2018-12-14 2018-12-17 Outpatient Juarez, MSK [id number] 14:50:00 23:34:56 [place] 2018-11-16 2018-11-19 Outpatient Juarez, MSK [id number] 11:49:00 23:35:10 [place] 2018-09-20 2018-09-23 [place] [id number] 13:45:00 23:36:39 [place] 2018-09-20 2018-09-23 Outpatient Juarez, MSK [id number] 15:08:00 23:36:29 [place] 2018-06-30 2018-07-03 Outpatient Silvia, MSK [id number] 10:21:00 23:35:40 Les 2018-06-30 2018-06-30 Outpatient SILVIA, MSK [id number] 10:53:00 10:53:00 LES 2018-06-30 2018-06-30 Outpatient Silvia, MSK [id number] 10:20:00 10:20:00 Les 2018-05-27 2018-05-30 Outpatient Silvia, MSK [id number] 11:44:00 23:37:45 Les 2018-05-27 2018-05-30 Outpatient OV_MU_Rodolfo Vega, MSK [id number] 11:44:00 23:34:35 Les 2018-04-22 2018-04-25 Outpatient OV_MU_Rodolfo Guerrero, MSTavia [id number] 11:47:00 23:36:53 Les 2018-04-15 2018-04-18 Outpatient Cesar MSTavia [id number] 11:53:00 23:38:04 Les 2017-04-16 2017-11-12 Outpatient MSK [id number] 12:07:00 23:33:07 Plan of Treatment Planned Activity Planned Date Details Comments Future Scheduled Test [code = ]
--- OUTSIDE RECORDS SUMMARY | 2021-10-25 01:03 | XMS_ITS | Encounter Summary ---
:1940 Author Organization [facility] [place] [address] Care Team Providers Name Role Phone Karen Holder MD Primary Care Provider Reason for Visit Consultation (Routine) - Authorized Specialty Diagnoses / Procedures Referred By Contact Refer red To Contact Dermatology Diagnoses Personal history of other malignant neoplasm of skin Other skin changes due to chronic exposure to nonionizing radiation HX of SCCa of Skin, Colloid Milium; New Patient-Notes Received Karen Holder MD [facility] Dermatology Procedures Consult [address] [place] [address] [place] [address] Fax: Referral ID Status Reason Start Date Expiration Date Visits V isits Requested Authorized [id number] Authorized 11/15/2020 11/15/2021 6 6 Encounter Details Date Type Department Care Team Description 12/14/2020 Office Visit Dermatology at [facility] story of squamous cell carcinoma of skin; [facility] TOUSSAINT Scalp pruritus; [address] [facility] Mccarthy angioma; [place] [address] [address]; [phone]-DERMATOLOGY [place], [place] [address] Social History Tobacco Use Types Packs/Day Years Used Date Never Assessed Sex Assigned at Date Recorded Not on file documented as of this encounter Progress Notes Zulema Portillo MD - 12/14/2020 1:00 PM EDT Images from the original note were not included. DEPARTMENT OF DERMATOLOGY Medical Dermatology Clinic Provider: Zulema Portillo MD Patient's preferred name Savannah Preferred contact method for results []myDH []Letter [x]Phone: home Detailed phone message OK? Yes including biopsy results Are there any other people with whom we may discuss your care? Daughter Michelle PAST MEDICAL HISTORY If no, type N. If yes, type date, location, treatment Melanoma No Dysplastic nevi No SCC SCC, left nose, s/p mohs surgery ~2009 at outside facility (pt reported) BCC No AKs No UV Exposure & Protection + history of blistering sunburns Other relevant past medical history (i.e. 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 If yes, include details below Allergy to lidocaine, epinephrine, Dermabond, chlorhexidine, or adhesives: Bleeding disorder or blood thinners: Pacemaker, defibrillator, deep brain stimulator, cochlear implant: History of Present Illness: Savannah Poe is a 80 y.o. year old. Patient is referred to the clinic at the request of Karen Holder for skin cancer screening. Specific skin concerns today include white lesions on face which she notes resemble milia. She also reports persistent scalp pruritus. Currently using an OTC pretty acid shampoo with mild benefit. Review of Systems: General: Feeling well. Skin: No other skin concerns. Medications: Reviewed in eD-H Allergies: Reviewed in eD-H Skin Examination: Full skin examination: Patient asked to undress to their comfort level. Verbalized that the provider's preference is that patient removal all clothing and that the provider will not examine areas patient elects to keep covered. Examination of the scalp, hair, head, face, ears, neck, chest, axillae, abdomen, back, buttocks, and upper and lower extremities.Genitalia was not examined. Assessment/Plan: # History of Non-Melanoma skin cancer: Well healed scar on left nose - No clinical evidence of reoccurrence today. - Continue clinical monitoring # Scalp pruritus - scalp skin clear today - Reviewed skin findings, possible etiologies, and treatment options - Pt advised to avoid shampoos/hair products with fragrance - Recommended OTC Head and Shoulders - lather into scalp, let sit for 5-10 minutes, then rinse. 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 Counseled: Benign cysts. Usually self-resolve in months. -Treatment options including but not limited to OTC milia extractor, topical retinoids, or cosmetic removal in the office (often not covered by insurance) by milia extractor, incision and enucleation.Answered all questions. - In order to confirm diagnosis, lesion was lanced with 11 blade and keratinaceous debri extruded confirming diagnosis. No charge for extraction as this was deemed diagnostic. # History of intertrigo - Suggested keeping skin folds dry, with chairman & ceo after bathing - Suggested OTC zeasorb powder 30 minutes were spent in the above visit. Other items to document in the assessment/plan if relevant ??? OTC skin products discussed RTC: 2 years for FBSE, sooner if needed. []Note routed to workers compensation legal secretary [x]Recall has been placed in scheduling system []Appointment scheduled at checkout Scribe attestation: Kathya Rust CMA who has performed the documentation for this encounterin the presence of and acting as a scribe for Zulema Portillo MD. I performed the above scribed service and agree with the accuracy of the documentation in this encounter. Reviewed and signed by: Zulema Portillo MD Dermatology [facility] documented in this encounter Plan of Treatment Not on filedocumented as of this encounter Visit Diagnoses Diagnosis History of squamous cell carcinoma of sk in Personal history of other malignant neop lasm of skin Scalp pruritus Unspecified pruritic disorder Mccarthy angioma Nevus, non-neoplastic Milia Sebaceous cyst Intertrigo Other specified erythematous condition documented in this encounter Care Teams Seat Joiner Relationship Specialty Start Date End Date Karen Holder MD PCP - General Family Medicine 11/26/20 [address] [place] [address] documented as of this encounter
--- OUTSIDE RECORDS SUMMARY | 2021-10-25 01:03 | XMS_ITS | Encounter Summary ---
:1940 Author Organization [facility] [place] [address] Care Team Providers Name Role Phone Unavailable Primary Care Provider Unavailable Encounter Details Date Type Department Care Team Description 02/15/2008 Ancillary Procedure Radiology Library at Karen Holder MD [facility] [address] [place] [address] [facility] [phone] [place] [address] (Work) [phone] Social History Tobacco Use Types Packs/Day Years Used Date Never Assessed Sex Assigned at Date Recorded Not on file documented as of this encounter Plan of Treatment Not on filedocumented as of this encounter Procedures Procedure Name Priority Date/Time Associated Diagnosis Comme nts FILM LIBRARY Routine 02/15/2008 12:00 AM Results for this STORAGE ONLY MAMMO EST procedure are in the results section. documented in this encounter Results Film Library- Storage Only Mammo (02/15/2008 12:00 AM EST) Specimen (Source) Anatomical Location Collection Method / Collectio n Time Received Time / Laterality Volume Narrative SHELLY - 06/25/2021 4:24 PM EDT This exam is auto-finalizing. It's purpo se is for storage only. Karen Holder MD IMG FILM LIBRARY ORDERABLES Performing Organization Address City/State/ZIP Code Phon e Number [place], [place] documented in this encounter Visit Diagnoses Not on filedocumented in this encounter
--- OUTSIDE RECORDS SUMMARY | 2021-10-25 01:03 | XMS_ITS | Encounter Summary ---
:1940 Author Organization [facility] [place] [address] Care Team Providers Name Role Phone Karen Holder MD Primary Care Provider Reason for Visit Reason Onset Date Comments Appointment 01/07/2021 Encounter Details Date Type Department Care Team Description 01/07/2021 Telephone Orthopaedics at [facility] [place] [address] Social History Tobacco Use Types Packs/Day Years Used Date Never Assessed Sex Assigned at Date Recorded Not on file documented as of this encounter Miscellaneous Notes Telephone Encounter - Antonia Chatterjee - 01/07/2021 4:50 PM EDT Left message with Patient informing of X-Ray needed for 01/09/21 Appointment, please arrive in 3T at 10:30AM documented in this encounter Plan of Treatment Not on filedocumented as of this encounter Visit Diagnoses Not on filedocumented in this encounter Care Teams Pointer Machine Operator Relationship Specialty Start Date End Date Karen Holder MD PCP - General Family Medicine 11/26/20 [address] [place] [address] documented as of this encounter
--- OUTSIDE RECORDS SUMMARY | 2021-10-25 01:03 | XMS_ITS | Encounter Summary ---
:1940 Author Organization [facility] [place] [address] Care Team Providers Name Role Phone Unavailable Primary Care Provider Unavailable Encounter Details Date Type Department Care Team Description 01/18/2007 Ancillary Procedure Radiology Library at Karen Holder MD [facility] [address] [place] [address] [facility] [phone] [place] [address] (Work) [phone] Social History Tobacco Use Types Packs/Day Years Used Date Never Assessed Sex Assigned at Date Recorded Not on file documented as of this encounter Plan of Treatment Not on filedocumented as of this encounter Procedures Procedure Name Priority Date/Time Associated Diagnosis Comme nts FILM LIBRARY Routine 01/18/2007 12:00 AM Results for this STORAGE ONLY MAMMO EDT procedure are in the results section. documented in this encounter Results Film Library- Storage Only Mammo (01/18/2007 12:00 AM EDT) Specimen (Source) Anatomical Location Collection Method / Collectio n Time Received Time / Laterality Volume Narrative ALLA BRAVO - 06/25/2021 4:24 PM EDT This exam is auto-finalizing. It's purpo se is for storage only. Karen Holder MD IMG FILM LIBRARY ORDERABLES Performing Organization Address City/State/ZIP Code Phon e Number [place], [place] documented in this encounter Visit Diagnoses Not on filedocumented in this encounter
--- OUTSIDE RECORDS SUMMARY | 2021-10-25 01:03 | XMS_ITS | Encounter Summary ---
:1940 Author Organization [facility] [place] [address] Care Team Providers Name Role Phone Unavailable Primary Care Provider Unavailable Encounter Details Date Type Department Care Team Description 06/06/2014 Ancillary Procedure Radiology Library at Karen Holder MD [facility] [address] [place] [address] [facility] [phone] [place] [address] (Work) [phone] Social History Tobacco Use Types Packs/Day Years Used Date Never Assessed Sex Assigned at Date Recorded Not on file documented as of this encounter Plan of Treatment Not on filedocumented as of this encounter Procedures Procedure Name Priority Date/Time Associated Diagnosis Comme nts FILM LIBRARY Routine 06/06/2014 12:00 AM Results for this STORAGE ONLY MAMMO EST procedure are in the results section. documented in this encounter Results Film Library- Storage Only Mammo (06/06/2014 12:00 AM EST) Specimen (Source) Anatomical Location Collection Method / Collectio n Time Received Time / Laterality Volume Narrative SHELLY - 06/25/2021 4:25 PM EDT This exam is auto-finalizing. It's purpo se is for storage only. Karen Holder MD IMG FILM LIBRARY ORDERABLES Performing Organization Address City/State/ZIP Code Phon e Number [place], [place] documented in this encounter Visit Diagnoses Not on filedocumented in this encounter
--- OUTSIDE RECORDS SUMMARY | 2021-10-25 01:03 | XMS_ITS | Encounter Summary ---
:1940 Author Organization [facility] [place] [address] Care Team Providers Name Role Phone Unavailable Primary Care Provider Unavailable Encounter Details Date Type Department Care Team Description 01/15/2004 Ancillary Procedure Radiology Library at Karen Holder MD [facility] [place] [address] [place] [address] [facility] [phone] [place] [address] (Work) [phone] Social History Tobacco Use Types Packs/Day Years Used Date Never Assessed Sex Assigned at Date Recorded Not on file documented as of this encounter Plan of Treatment Not on filedocumented as of this encounter Procedures Procedure Name Priority Date/Time Associated Diagnosis Comme nts FILM LIBRARY Routine 01/15/2004 12:00 AM Results for this STORAGE ONLY MAMMO EDT procedure are in the results section. documented in this encounter Results Film Library- Storage Only Mammo (01/15/2004 12:00 AM EDT) Specimen (Source) Anatomical Location Collection Method / Collectio n Time Received Time / Laterality Volume Narrative ALLA BRAVO - 06/25/2021 4:23 PM EDT This exam is auto-finalizing. It's purpo se is for storage only. Karen Holder MD IMG FILM LIBRARY ORDERABLES Performing Organization Address City/State/ZIP Code Phon e Number SHELLY [place], [place] documented in this encounter Visit Diagnoses Not on filedocumented in this encounter
--- OUTSIDE RECORDS SUMMARY | 2021-10-25 01:03 | XMS_ITS | Encounter Summary ---
:1940 Author Organization [facility] [place] [address] Care Team Providers Name Role Phone Karen Holder MD Primary Care Provider Reason for Visit Occupational Therapy (Routine) - Closed Specialty Diagnoses / Procedures Referred By Contact Refer red To Contact Occupational Therapy Diagnoses Pain in left wrist Arthritis of carpometacarpal (CMC) joint of left thumb Richard Alvarez, [facility] Ot Rehab MD [facility] [address] [place] [facility] [id number] [place] [address] Referral ID Status Reason Start Date Expiration Date Visits V isits Requested Authorized [id number] Closed Evaluate and 01/09/2021 01/09/2022 12 12 Treat Encounter Details Date Type Department Care Team Description 01/09/2021 Office Visit Orthopaedics at [facility] [place] Tiffanie Abdalla Arthritis of [facility] R, OT carpometa carpal (CMC) [place] [address] Social History Tobacco Use Types Packs/Day [...] documented as of this encounter Miscellaneous Notes Initial Evaluation - Tiffanie Abdalla OT - 01/09/2021 1:00 PM EDT OCCUPATIONAL THERAPY ORTHO CONSULT/TX Certification Period: One time visit Referral Source: Dr. Antonio Cook MD Follow-up: LAURI Total Treatment time: 20 Minutes Timed Code Treatment Time: 20 minutes OCCUPATIONAL PROFILE: Savannah Poe is a 80 y.o. 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 Savannah Poe is referred to Occupational Therapy for evaluation and treatment to include fabrication of a custom orthosis. Patient presents today alone. 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 She is also the mother of a former patient of mine. Date of onset of symptoms: Progressing/developing Pertinent History and/or Co-morbidities: 1. 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 Global Mental Function: With gross screening of patient???s global mental functions, patient demonstrates orientation to person, place, time, and situation. Patient???s affect/behavior is appropriate and cooperative today. Pain: (Assessed using the Visual Analog Pain Scale) At Rest: 1-2/10 With Activity: 4-5/10 Treatment Today: Therex: Strength/Endurance/ROM (35835) 20 min Educated patient in etiology and biomechanics as related to patient's symptoms Range of Motion Exercises: thumb webspace trigger point release, webspace stretching, gentle putty push with thumb (carbajal putty) CLINICAL DECISION MAKING: Savannah Poe is able to independently verbalize and demonstrate the recommended home program following instructions today. Savannah Poe has good potential for gains with therapy/home program use. Patient knows to call with any questions or concerns. I plan to mail her further thumb maintenance strategies from [facility], as well as yellow putty, so that shemay advance her home program as tolerated. Short Term Goals (to be met by end of the visit today): Date Goal Met: Today 2. Savannah Poe will be independent with home exercises as evident with demonstration in therapy. Goal Status: Meets PLAN: Therapeutic exercises to increase functional mobility, Telehealth and follow up PRN (X) Savannah Poe participated in the evaluation, collaborated on treatment goals, and agrees to the treatment plan. documented in this encounter Plan of Treatment Scheduled Referrals Name Type Priority Associated Diagnoses Order S chedule Referral to Outpatient Routine Pain in left wri st Ordered: Occupational Therapy Referral Arthritis of 021 carpometacarpal (CMC) joint of left thumb documented as of this encounter Visit Diagnoses Diagnosis Arthritis of carpometacarpal (CMC) joint of left thumb documented in this encounter Care Teams Brim Stitcher Relationship Specialty Start Date End Date Karen Holder MD PCP - General Family Medicine 11/26/20 [address] [place] [address] documented as of this encounter
--- OUTSIDE RECORDS SUMMARY | 2021-10-25 01:03 | XMS_ITS | Encounter Summary ---
:1940 Author Organization [facility] [place] [address] Care Team Providers Name Role Phone Unavailable Primary Care Provider Unavailable Encounter Details Date Type Department Care Team Description 05/09/2010 Ancillary Procedure Radiology Library at Karen Holder MD [facility] [place] [address] [place] [address] [facility] [phone] [place] [address] (Work) [phone] Social History Tobacco Use Types Packs/Day Years Used Date Never Assessed Sex Assigned at Date Recorded Not on file documented as of this encounter Plan of Treatment Not on filedocumented as of this encounter Procedures Procedure Name Priority Date/Time Associated Diagnosis Comme nts FILM LIBRARY Routine 05/09/2010 12:00 AM Results for this STORAGE ONLY MAMMO EST procedure are in the results section. documented in this encounter Results Film Library- Storage Only Mammo (05/09/2010 12:00 AM EST) Specimen (Source) Anatomical Location Collection Method / Collectio n Time Received Time / Laterality Volume Narrative SHELLY - 06/25/2021 4:24 PM EDT This exam is auto-finalizing. It's purpo se is for storage only. Karen Holder MD IMG FILM LIBRARY ORDERABLES Performing Organization Address City/State/ZIP Code Phon e Number [place], [place] documented in this encounter Visit Diagnoses Not on filedocumented in this encounter
--- OUTSIDE RECORDS SUMMARY | 2021-10-25 01:03 | XMS_ITS | Encounter Summary ---
:1940 Author Organization [facility] [place] [address] Care Team Providers Name Role Phone Unavailable Primary Care Provider Unavailable Encounter Details Date Type Department Care Team Description 09/20/2018 Ancillary Procedure Radiology Library at Karen Holder MD [facility] [place] [address] [place] [address] [facility] [phone] [place] [address] (Work) [phone] Social History Tobacco Use Types Packs/Day Years Used Date Never Assessed Sex Assigned at Date Recorded Not on file documented as of this encounter Plan of Treatment Not on filedocumented as of this encounter Procedures Procedure Name Priority Date/Time Associated Diagnosis Comme nts FILM LIBRARY Routine 09/20/2018 12:00 AM Results for this STORAGE ONLY MAMMO EDT procedure are in the results section. documented in this encounter Results Film Library- Storage Only Mammo (09/20/2018 12:00 AM EDT) Specimen (Source) Anatomical Location Collection Method / Collectio n Time Received Time / Laterality Volume Narrative ALLA BRAVO - 06/25/2021 4:27 PM EDT This exam is auto-finalizing. It's purpo se is for storage only. Karen Holder MD IMG FILM LIBRARY ORDERABLES Performing Organization Address City/State/ZIP Code Phon e Number SHELLY [place], [place] documented in this encounter Visit Diagnoses Not on filedocumented in this encounter
--- OUTSIDE RECORDS SUMMARY | 2021-10-25 01:03 | XMS_ITS | Encounter Summary ---
:1940 Author Organization [facility] [place] [address] Care Team Providers Name Role Phone Unavailable Primary Care Provider Unavailable Encounter Details Date Type Department Care Team Description 09/16/2017 Ancillary Procedure Radiology Library at Karen Holder MD [facility] [place] [address] [place] [address] [facility] [phone] [place] [address] (Work) [phone] Social History Tobacco Use Types Packs/Day Years Used Date Never Assessed Sex Assigned at Date Recorded Not on file documented as of this encounter Plan of Treatment Not on filedocumented as of this encounter Procedures Procedure Name Priority Date/Time Associated Diagnosis Comme nts FILM LIBRARY Routine 09/16/2017 12:00 AM Results for this STORAGE ONLY MAMMO EDT procedure are in the results section. documented in this encounter Results Film Library- Storage Only Mammo (09/16/2017 12:00 AM EDT) Specimen (Source) Anatomical Location Collection Method / Collectio n Time Received Time / Laterality Volume Narrative ALLA BRAVO - 06/25/2021 4:26 PM EDT This exam is auto-finalizing. It's purpo se is for storage only. Karen Holder MD IMG FILM LIBRARY ORDERABLES Performing Organization Address City/State/ZIP Code Phon e Number SHELLY [place], [place] documented in this encounter Visit Diagnoses Not on filedocumented in this encounter
--- OUTSIDE RECORDS SUMMARY | 2021-10-25 01:03 | XMS_ITS | Encounter Summary ---
:1940 Author Organization [facility] [place] [address] Care Team Providers Name Role Phone Karen Holder MD Primary Care Provider Encounter Details Date Type Department Care Team Description 06/21/2021 Telephone Hematology and Oncol oggregoria at [facility] [address] Social History Tobacco Use Types Packs/Day [...] this encounter Miscellaneous Notes Telephone Encounter - Madison Abebe - 06/21/2021 11:25 AM EST Patient Name: Savannah Poe Patient : 1940 Attn: Image Library From: [facility] - [phone] Phone: Fed-Ex# [id number] - Please overnight [x] Urgent [] For Review [] Please Reply [] Please Recycle Pursuant to the Federal Mammography Quality Standards Act-Section 900.12(c), (4), (ii) Comments: Please send all Mammograms, Ultrasounds & Breast MRIs or any scan pertaining to breastcancer. (CD, Films, Electronic Transfer & Reports) to [facility], [place] [address] If Questions call [phone] Notice of Confidentiality: The documents accompanying this FAX transmission cover contain information from [facility] that is confidential and privileged. The information is intended for the use of the individual or entity named on this transmittal sheet. If you are not the intended recipient, be aware that any disclosure, copying, distribution or use of the contents is prohibited. If you have received the FAX in error, please notify us by telephone (collect) immediately to permit us to arrange for theretrieval of the documents at no cost to you. documented in this encounter Plan of Treatment Not on filedocumented as of this encounter Visit Diagnoses Not on filedocumented in this encounter Care Teams Cane Weigher Relationship Specialty Start Date End Date Karen Holder MD PCP - General Family Medicine 11/26/20 [address] [place] [address] documented as of this encounter
== END ==
PROVIDERS: Visit Provider Family Medicine
DX: M25.561 Pain in right knee (principal); M25.562 Pain in left knee
CPT/HCPCS: 73562

== ENCOUNTER 2022-01-02 14:45 | Outpatient (REF) | payer MEDICARE, BC, SELFPAY ==
[2022-01-02 19:54] LABS: Hemoglobin A1C 6.1 % (<5.7)
== END 2022-01-02 14:46 | disposition home or self-care (01) ==
LOC: NCHCN 14:45
PROVIDERS: PCP Family Medicine; Visit Provider Family Medicine
DX: M62.81 Muscle weakness (generalized) (principal)
CPT/HCPCS: 83036

== ENCOUNTER 2022-05-12 11:58 | Outpatient (REF) | payer MEDICARE, BC, SELFPAY ==
[2022-05-12 15:32] LABS: HCT 32.7 % (36.0-46.0); HGB 10.6 g/dL (11.2-15.7); MCH 28.8 pg (27.0-33.0); MCHC 32.4 % (32.0-36.0); MCV 89 fL (80-95); MPV 11.4 fL (8.0-11.0); Platelet Count 262 10^3/uL (130-400); RBC 3.68 10^6/uL (3.93-5.22); RDW 12.7 % (11.7-14.6); RDW-SD 41.4 fL; WBC 5.26 10^3/uL (4.4-10.8)
[2022-05-12 15:54] LABS: ALT 20 U/L (14-59); AST 21 U/L (15-37); Albumin 3.9 g/dL (3.4-5.0); Alkaline Phosphatase 107 U/L (46-116); Anion Gap 9.4 mmol/L (3-11); BUN 19 mg/dL (7-18); Bilirubin, Total 0.4 mg/dL (0.2-1.0); CO2 25.6 mmol/L (21.0-32.0); CREATININE 0.7 mg/dL (0.55-1.02); Calcium 9.1 mg/dL (8.5-10.1); Calculated LDL 102 mg/dL (<100); Chloride 107 mmol/L (98-107); Cholesterol 207 mg/dL (<200); Estimated GFR 86.83 (mL/min/1.73m2); Glucose 93 mg/dL (74-106); HDL Cholesterol 98 mg/dL (40-60); Potassium 4.2 mmol/L (3.5-5.1); Sodium 142 mmol/L (136-145); Total Protein 6.7 g/dL (6.4-8.2); Triglyceride 37 mg/dL (<150)
[2022-05-12 16:48] LABS: Vitamin D 25 Total 30.6 ng/mL (30-100)
== END 2022-05-12 11:59 | disposition home or self-care (01) ==
LOC: NCHCN 11:58
PROVIDERS: PCP Family Medicine; Visit Provider Family Medicine
DX: E03.9 Hypothyroidism, unspecified; I89.0 Lymphedema, not elsewhere classified; D64.9 Anemia, unspecified; E66.8 Other obesity; M62.81 Muscle weakness (generalized)
CPT/HCPCS: 80053; 80061; 82306; 85027

== ENCOUNTER 2022-05-14 16:01 | Outpatient (REF) | payer MEDICARE, BC, SELFPAY | END 2022-05-14 16:02 | disposition home or self-care (01) | LOC: NCHCN 16:01 | PROVIDERS: PCP Family Medicine; Visit Provider Family Medicine | DX: E03.9 Hypothyroidism, unspecified (principal); C73 Malignant neoplasm of thyroid gland | CPT/HCPCS: 84443 ==

== ENCOUNTER 2022-09-22 21:05 | Outpatient (REF) | payer MEDICARE, BC, SELFPAY ==
[2022-09-23 10:05] LABS: Iron 76 ug/dL (50-170)
== END 2022-09-22 21:06 | disposition home or self-care (01) ==
LOC: NCHCN 21:05
PROVIDERS: PCP Family Medicine; Visit Provider Family Medicine
DX: Z86.2 Personal history of diseases of the blood and blood-forming organs and certain disorders involving the immune mechanism (principal)
CPT/HCPCS: 83540

== ENCOUNTER 2022-09-24 13:00 | Outpatient (REF) | payer MEDICARE, BC, SELFPAY ==
[2022-09-24 14:51] LABS: Abs Immature Grans 0.03 10^3/uL (0.0-0.06); Absolute Basophil Count 0.04 10^3/uL (0.0-0.2); Absolute Eosinophil Count 0.42 10^3/uL (0.0-0.7); Absolute Lymphocyte Count 1.23 10^3/uL (1.2-3.4); Absolute Monocyte Count 0.47 10^3/uL (0.1-0.8); Absolute Neutrophil Count 3.66 10^3/uL (1.2-6.7); Basophils % 0.7; Eosinophils % 7.2; HGB 11.8 g/dL (11.2-15.7); Immature Grans % 0.5; MCH 29.7 pg (27.0-33.0); MCHC 32.8 % (32.0-36.0); MCV 91 fL (80-95); MPV 10.7 fL (8.0-11.0); Neutrophils % 62.6; Platelet Count 307 10^3/uL (130-400); RBC 3.97 10^6/uL (3.93-5.22); RDW 12.4 % (11.7-14.6); RDW-SD 41.3 fL; WBC 5.85 10^3/uL (4.4-10.8)
[2022-09-24 14:58] LABS: Iron 88 ug/dL (50-170)
[2022-09-24 15:46] LABS: Ferritin 41 ng/mL (8-252)
== END 2022-09-24 13:01 | disposition home or self-care (01) ==
LOC: NCHCN 13:00
PROVIDERS: PCP Family Medicine; Visit Provider Family Medicine
DX: Z86.2 Personal history of diseases of the blood and blood-forming organs and certain disorders involving the immune mechanism (principal)
CPT/HCPCS: 82728; 83540; 85025

== ENCOUNTER → 2022-12-18 12:46 | Outpatient (CLI) | payer MEDICARE, BC, SELFPAY ==
--- NOTE | 2022-12-18 14:05 | DI.RAD_ITS ---
Exam(s) XR WRIST LT COMP NAVICULAR EXAM: XR WRIST LT COMP NAVICULAR CLINICAL HISTORY: LEFT WRIST JOINT PAIN M25.532. TECHNIQUE: 2D digital imaging was performed. COMPARISON: No exams were available for comparison FINDINGS: Four views: No evidence of acute fracture nor carpal dislocation nor significant ulnar variance. Benign cysts no venu at the waist of the scaphoid bone. Also some narrowing of the lateral aspect of the radiocarpal joint at this level. Scapholunate distance is normal. No evidence of avascular necrosis. Moderate degenerative changes in the 1st carpometacarpal joint noted. No osseous lesions IMPRESSION: Degenerative changes. No fractures. DATA REPOSITORY: RADIATION DOSE DELIVERED:
== END ==
PROVIDERS: PCP Family Medicine; Visit Provider Family Medicine
DX: M19.032 Primary osteoarthritis, left wrist (principal)
CPT/HCPCS: 73110

== ENCOUNTER 2023-02-12 09:34 | Outpatient (REF) | payer MEDICARE, BC, SELFPAY ==
[2023-02-12 14:53] LABS: ALT 17 U/L (14-59); AST 13 U/L (15-37); Albumin 3.7 g/dL (3.4-5.0); Alkaline Phosphatase 107 U/L (46-116); Anion Gap 6.5 mmol/L (3-11); BUN 17 mg/dL (7-18); Bilirubin, Total 0.6 mg/dL (0.2-1.0); CO2 27.5 mmol/L (21.0-32.0); CREATININE 0.7 mg/dL (0.55-1.02); Calcium 9.4 mg/dL (8.5-10.1); Chloride 104 mmol/L (98-107); FREE T4 1.08 ng/dL (0.76-1.46); Glucose 102 mg/dL (74-106); Potassium 4.1 mmol/L (3.5-5.1); Sodium 138 mmol/L (136-145); TSH 0.63 uIU/mL (0.36-3.74); Total Protein 7.1 g/dL (6.4-8.2)
[2023-02-12 15:16] LABS: T4 8.7 ug/dL (4.7-13.3)
[2023-02-12 22:27] LABS: T3,Free 4.3 pg/mL (2.8-5.3)
[2023-02-12 22:41] LABS: T3, Total 132 ng/dL (97-169)
== END 2023-02-12 09:35 | disposition home or self-care (01) ==
LOC: NCHCN 09:34
PROVIDERS: PCP Family Medicine; Visit Provider Family Medicine
DX: E03.9 Hypothyroidism, unspecified (principal)
CPT/HCPCS: 80053; 84436; 84439; 84443; 84480; 84481

== ENCOUNTER → 2023-06-22 13:24 | Outpatient (BNVA) | payer MEDICARE, BC, SELFPAY | PROVIDERS: PCP Family Medicine; Referring Provider Family Medicine; Visit Provider Podiatrist | DX: M76.821 Posterior tibial tendinitis, right leg (principal); M76.822 Posterior tibial tendinitis, left leg; Q66.71 Congenital pes cavus, right foot; Q66.72 Congenital pes cavus, left foot | CPT/HCPCS: 99203 ==

== ENCOUNTER → 2023-07-30 08:17 | Outpatient (BNVA) | payer MEDICARE, BC, SELFPAY | PROVIDERS: PCP Family Medicine; Referring Provider Family Medicine; Visit Provider Podiatrist | DX: M76.822 Posterior tibial tendinitis, left leg; M76.821 Posterior tibial tendinitis, right leg; Q66.71 Congenital pes cavus, right foot; Q66.72 Congenital pes cavus, left foot | CPT/HCPCS: 99213 ==

== ENCOUNTER → 2023-09-22 15:31 | Outpatient (BNVA) | payer MEDICARE, BC, SELFPAY | PROVIDERS: PCP Family Medicine; Referring Provider Family Medicine; Visit Provider Podiatrist | DX: M76.822 Posterior tibial tendinitis, left leg (principal); M76.821 Posterior tibial tendinitis, right leg; Q66.71 Congenital pes cavus, right foot; Q66.72 Congenital pes cavus, left foot | CPT/HCPCS: NC OV ==

== ENCOUNTER 2023-10-16 15:58 | Outpatient (REF) | payer MEDICARE, BC, SELFPAY ==
[2023-10-16 20:32] LABS: Abs Immature Grans 0.02 10^3/uL (0.0-0.06); Absolute Basophil Count 0.04 10^3/uL (0.0-0.2); Absolute Eosinophil Count 0.36 10^3/uL (0.0-0.7); Absolute Lymphocyte Count 1.39 10^3/uL (1.2-3.4); Absolute Monocyte Count 0.56 10^3/uL (0.1-0.8); Basophils % 0.7 %; Eosinophils % 6.2 %; HCT 36.9 % (36.0-46.0); HGB 11.9 g/dL (11.2-15.7); Immature Grans % 0.3 %; Lymphocytes % 24.1 %; MCH 29.6 pg (27.0-33.0); MCHC 32.2 % (32.0-36.0); MCV 92 fL (80-95); MPV 11.2 fL (8.0-11.0); Monocytes % 9.7 %; Platelet Count 277 10^3/uL (130-400); RBC 4.02 10^6/uL (3.93-5.22); RDW 12.1 % (11.7-14.6); WBC 5.77 10^3/uL (4.4-10.8)
[2023-10-16 21:03] LABS: Calculated LDL 94 mg/dL (<100); Cholesterol 216 mg/dL (<200); HDL Cholesterol 91 mg/dL (40-60); TSH (W/Ref FT4) 1.06 uIU/mL (0.36-3.74); Triglyceride 159 mg/dL (<150); Vitamin D 25 Total 40.6 ng/mL (30-100)
== END 2023-10-16 15:59 | disposition home or self-care (01) ==
LOC: NCHCN 15:58
PROVIDERS: PCP Family Medicine; Visit Provider Family Medicine
DX: E03.9 Hypothyroidism, unspecified (principal); Z86.2 Personal history of diseases of the blood and blood-forming organs and certain disorders involving the immune mechanism; Z00.00 Encounter for general adult medical examination without abnormal findings
CPT/HCPCS: 80061; 82306; 84443; 85025

== ENCOUNTER 2023-10-21 17:36 | Outpatient (REF) | payer MEDICARE, BC, SELFPAY ==
[2023-10-21 21:52] LABS: ALT 25 U/L (14-59); AST 21 U/L (15-37); Albumin 3.7 g/dL (3.4-5.0); Alkaline Phosphatase 92 U/L (46-116); BUN 17 mg/dL (7-18); CREATININE 0.8 mg/dL (0.55-1.02); Calcium 8.9 mg/dL (8.5-10.1); Chloride 104 mmol/L (98-107); Estimated GFR 73.06 (mL/min/1.73m2); Glucose 115 mg/dL (74-106); Potassium 4.1 mmol/L (3.5-5.1); Sodium 139 mmol/L (136-145); Total Protein 7.2 g/dL (6.4-8.2)
== END 2023-10-21 17:37 | disposition home or self-care (01) ==
LOC: NCHCN 17:36
PROVIDERS: PCP Family Medicine; Visit Provider Family Medicine
DX: Z86.2 Personal history of diseases of the blood and blood-forming organs and certain disorders involving the immune mechanism (principal)
CPT/HCPCS: 80053

== ENCOUNTER → 2023-12-02 08:09 | Outpatient (BNVA) | payer MEDICARE, BC, SELFPAY | PROVIDERS: PCP Family Medicine; Referring Provider Family Medicine; Visit Provider Podiatrist | DX: M76.822 Posterior tibial tendinitis, left leg (principal); M76.821 Posterior tibial tendinitis, right leg; Q66.71 Congenital pes cavus, right foot; Q66.72 Congenital pes cavus, left foot | CPT/HCPCS: 99213 ==